=== PATIENT | male | born 1965 | race American Indian/Alaskan Native ===

== ENCOUNTER 2023-09-13 08:10 | Day surgery (SDC) | payer OTHER ==
[2023-09-11 10:45] VITALS: BP 131/84
[~2023-09-13] VITALS: Ht 170.2 cm; Wt 80.9 kg
[~2023-09-13 08:10] MED LIST: ARTIFICIAL TEAR15 M6 OP; ATORVASTATIN CA20 MG PO; CEFAZOLIN SODIUM 2 GM/20 ML SYR IV SCH; DILTIAZEM ER180 M1 PO; FENOFIBRATE50 MG PO; HYDROCHLOROTHIA25 MG PO; IBLOOD GLUCOSE TEST STRIP 1 EA TEST VI PRN; IBUPROFEN400 MG PO; LACTATED RINGER'S 1,000 ML IV SCH; LIDOCAINE HCL 1% 5 ML SDV INJ ONE; LISINOPRIL40 MG PO; METFORMIN HCL1000 MG PO; METHOCARBAMOL750 MG PO; MIDAZOLAM HCL 5 MG/5 ML VIAL IV PRN; PAIN RELIEVER325 MG PO; TRAMADOL HCL50 MG PO; VITAMIN D350 MC3 PO; fentaNYL citrate 100 MCG/2 ML VIAL IV PRN
[2023-09-13 08:26] VITALS: BP 130/109
[2023-09-13 08:30] VITALS: BP 121/71
[2023-09-13] MEDS ORDERED: propofoL 200 MG/20 ML VIAL ONE (09:16)
[2023-09-13] MEDS ORDERED: LIDOCAINE HCL 2% 5 ML SDV ONE (09:16)
[2023-09-13] MEDS ORDERED: ondansetron HCL 4 MG/2 ML VIAL ONE (09:34)
[2023-09-13] MEDS ORDERED: ePHEDrine sulfate 50 MG/ML AMP ONE (09:35)
--- NOTE | 2023-09-13 09:57 | NUR ---
09/13/23 0957 Sheets,Destiney 0931 PT ARRIVED TO PACU ON 6L VIA MASK, SMALL AMOUNT OF SNORING NOTED AND RN REPOSITIONED PT HEAD AND SNORING DECREASED. PT NONAROUSABLE TO TACTILE STIMULI.
[2023-09-13 10:09] VITALS: BP 100/66
--- NOTE | 2023-09-13 11:26 | OR ---
[facility] [address], [place] [address] Signed DATE OF OPERATION: 09/13/2023 SURGEON: Lee Shipman MD PREOPERATIVE DIAGNOSIS: Screening. POSTOPERATIVE DIAGNOSES: 1. Minimal sigmoid diverticulosis. 2. 4 mm polyp at 45 cm in left colon. 3. 4 mm polyp at 22 cm in the sigmoid colon. 4. Mild melanosis coli. PROCEDURE: Colonoscopy with hot biopsy and cold biopsy left colon. ESTIMATED BLOOD LOSS: None. INDICATIONS: Charline is a 58-year-old gentleman, asked to see me for his initial screening colonoscopy. He has no lower GI complaints. There is no family history of colon cancer or polyps. He is retired from the [employer]. 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 He lives over in [place], [place]. However, he drives 2 hours east to the [facility] for his healthcare. He was therefore asked to see me as the local general surgeon here in [place], [place] for his initial screening colonoscopy. He helped his father with his colonoscopy previously. Consequently, he is familiar with this process. In the office, I gave him a pamphlet on colonoscopy. He understands the nature of the test. There is risk including, but not limited to gas bloating, crampy abdominal pain, bleeding, perforation requiring surgery, and missed diagnosis. We also reviewed the written instructions for the bowel prep line by line. Also, he has had various orthopedic injuries and so forth and has chronic pain issues. He has to use tramadol, ibuprofen and methocarbamol on a daily basis. He is also diabetic. Consequently, we asked for monitored anesthesia care with propofol infusion. That worked out very nicely for him today. Charline had expressed understanding and wished to proceed. DESCRIPTION OF PROCEDURE: Charline was taken into our endoscopy suite and placed in the left lateral decubitus position. He was given monitored anesthesia care with propofol infusion per our nurse produce shipper. A digital rectal exam was performed and this was unremarkable. He had Electronically Signed By: LEE SHIPMAN MD 09/13/23 1126 PATIENT NAME: CHARLINE MATHIS OPERATIVE REPORT DATE OF : 65 REPORT #: [id number] PHYSICIAN: LEE SHIPMAN MD PCP: TREMAYNE DOE MD REPORT IS CONFIDENTIAL AND NOT TO BE RELEASED WITHOUT AUTHORIZATION [facility] [address], [place] [address] Signed good sphincter tone. There were no external hemorrhoids. No masses noted. The adult colonoscope was introduced and advanced under direct visualization of the camera. It took a little abdominal compression just to get the scope around into the cecum itself. His prep was good. We could easily see the appendiceal orifice and the ileocecal valve. The scope was then slowly withdrawn. We noticed that he has very mild tiger striping consistent with very mild melanosis coli. I suspect he is taking an [id number] stool softener or laxative. In that regard, we went ahead and took a cold biopsy of left colon at about 44 cm and at 45 cm there was a small polyp and also another one back at 22 cm. Those two were removed easily with the help of hot biopsy forceps. We saw just one diverticula as we came down through the sigmoid colon. The rectum was unremarkable. Upon retroflexion of the scope, we did not see any additional pathology noted above the anal canal. After this, the gas was suctioned out and the colonoscope removed. Charline tolerated the procedure quite well. RECOMMENDATIONS: I will see Charline back in my office in 7 to 14 days to review his results. Lee Shipman MD ALB/MODL /[id number] cc: [facility] Lee Shipman MD Copies: LEE SHIPMAN MD ~ Electronically Signed By: LEE SHIPMAN MD 09/13/23 1126 PATIENT NAME: CHARLINE MATHIS ANTHONY OPERATIVE REPORT DATE OF : 65 REPORT #: [id number] PHYSICIAN: LEE SHIPMAN MD PCP: TREMAYNE DOE MD REPORT IS CONFIDENTIAL AND NOT TO BE RELEASED WITHOUT AUTHORIZATION
--- NOTE | 2023-09-18 17:35 | PATH ---
[facility] [address], [place] [address] Signed SPECIMEN(S): A DESCENDING POLYP, 45 CM SPECIMEN(S): B COLON BIOPSY SPECIMEN(S): C SIGMOID POLYP, 22 CM SPECIMEN SOURCE: A. DESCENDING POLYP, 45 CM B. COLON BIOPSY C. SIGMOID POLYP, 22 CM CLINICAL HISTORY: Preop: Screening. Postop: Polyp, diverticulosis, melanosis coli. FINAL PATHOLOGIC DIAGNOSIS: A. Colon, descending at 45 cm, polypectomy: - Colonic mucosa with no significant pathologic changes B. Colon, biopsy: - Colonic mucosa with no significant pathologic changes C. Colon, sigmoid at 22 cm, polypectomy: - Hyperplastic polyp BRP MICROSCOPIC EXAMINATION: Histologic sections of all submitted blocks are examined by light microscopy. These findings, together with the gross examination, support the pathologic diagnosis. GROSS DESCRIPTION: A. The specimen, labeled and designated "Reinier, descending colon polyp at 45 cm," is received in formalin and consists of one echeverria soft tissue fragment, less than 0.1 cm. Entirely submitted in (A1). B. The specimen, labeled and designated "Reinier, colon biopsy," is received in formalin and consists of one echeverria soft tissue fragment, 0.1 cm. Entirely submitted in (B1). C. The specimen, labeled and designated "Reinier, sigmoid colon polyp at 22 cm," is received in formalin and consists of one echeverria soft tissue fragment, 0.2 cm. Entirely submitted in (C1). JS (under the direct supervision of a pathologist) The Gross Description was prepared using a voice recognition system. The report was reviewed for accuracy; however, sound-alike word errors, addition and/or deletions may occur. If there is any question about this report, please contact Client Services. PATIENT NAME: CHARLINE MATHIS JR PATHOLOGY DATE OF : 65 REPORT #: [id number] PHYSICIAN: DEMETRIUS BUCKNER PCP: TREMAYNE DOE MD REPORT IS CONFIDENTIAL AND NOT TO BE RELEASED WITHOUT AUTHORIZATION [facility] [address], [place] [address] Signed ADDITIONAL NOTES: Immunohistochemical and/or in situ hybridization studies if performed in this case included appropriate positive controls that reacted as expected. This test was developed and its performance characteristics determined by [facility]. It has not been cleared or approved by the U.S. Food and Drug Administration. The FDA has determined that such clearance or approval is not necessary. This test is used for clinical purposes. It should not be regarded as investigational or for research. [facility] is certified under the Clinical Laboratory Improvement Amendments of 1988 (CLIA) as qualified to perform high complexity clinical laboratory testing. Technical component was performed by [facility], [address] [place] [address] (CLIA# [id number]). Professional interpretation was performed by [email or web address] [address] [facility] [id number] Diagnostician: Thierry Mauro MD Pathologist Electronically Signed 09/18/2023 Copies: ~ PATIENT NAME: CHARLINE MATHIS PATHOLOGY DATE OF : 65 REPORT #: [id number] PHYSICIAN: DEMETRIUS BUCKNER PCP: TREMAYNE DOE MD REPORT IS CONFIDENTIAL AND NOT TO BE RELEASED WITHOUT AUTHORIZATION
== END 2023-09-13 10:27 | disposition home or self-care (01) ==
LOC: DS 08:10
PROVIDERS: ATTEND Colon & Rectal Surgery
PROC: 0DBE8ZX Excision of Large Intestine, Via Natural or Artificial Opening Endoscopic, Diagnostic (ICD-10-PCS; principal; 2023-09-13 09:45)
DX: Z12.11 Encounter for screening for malignant neoplasm of colon (principal); K63.5 Polyp of colon; K57.30 Diverticulosis of large intestine without perforation or abscess without bleeding; K63.89 Other specified diseases of intestine; I10 Essential (primary) hypertension; E78.5 Hyperlipidemia, unspecified; E11.9 Type 2 diabetes mellitus without complications; M54.9 Dorsalgia, unspecified; Z79.84 Long term (current) use of oral hypoglycemic drugs; Z79.899 Other long term (current) drug therapy
CPT/HCPCS: 00812; J0690; J2001; J2405; J2704; J7121